=== PATIENT | male | born 1965 | race Caucasian/White ===

== ENCOUNTER 2019-09-08 13:31 | Emergency (ER) | payer OTHER ==
[2019-09-08] MEDS ORDERED: diazePAM INJ 5 MG/ML SYRINGE IM STA (14:02)
[2019-09-08] MEDS ORDERED: HYDROmorphone 1 MG/ML CARPUJECT IM STA (14:02)
--- NOTE | 2019-09-08 14:13 | ED Physician Documentation ---
PD HPI UPPER EXT INJURY - Stated complaint Stated Complaint: LT ARM INJ - Chief complaint Chief Complaint: Trauma Ext - History obtained from History obtained from: Patient, Friend - History of Present Illness Location: Left, Arm Type of injury: Fall (4 to 6 feet off of a ladder, landing on the left arm) Timing - onset: How many hours ago (1) Timing - duration: Hours (1) Timing - details: Abrupt onset Pain level max: 10 Pain level now: 10 Improved by: Rest, Immobilization Worsened by: Moving, Palpating Associated symptoms: Swelling. No: Weakness, Numbness, Tingling Contributing factors: No: Anticoagulated Similar symptoms before: Has not had sx before Recently seen: Not recently seen Review of Systems Constitutional: denies: Fever GI: denies: Vomiting, Diarrhea Skin: denies: Rash Musculoskeletal: denies: Neck pain, Back pain Neurologic: denies: Headache, Head injury, LOC PD PAST MEDICAL HISTORY - Past Medical History Cardiovascular: Hypertension, High cholesterol Endocrine/Autoimmune: Type 2 diabetes GI: GERD Musculoskeletal: Osteoarthritis - Past Surgical History Past Surgical History: Yes General: Appendectomy Cardiovascular: Lobectomy - Present Medications Home Medications: Ambulatory Orders Medication Instructions Recorded Confirmed Aspirin [Aspir 81] 81 mg PO DAILY 06/14/15 06/14/15 Omeprazole [Prilosec] 20 mg PO DAILY 06/14/15 06/14/15 Simvastatin [Zocor] 40 mg PO DAILY 06/14/15 06/14/15 Telmisartan [Micardis] 20 mg PO DAILY 06/14/15 06/14/15 metFORMIN [Glucophage] 500 mg PO ONCE 06/14/15 06/14/15 Cyclobenzaprine [Flexeril] 10 mg PO TID PRN #20 tablet 06/15/15 oxyCODONE/ACET 5/325 [Percocet 5 1 - 2 each PO Q6H PRN #14 tablet 06/15/15 mg/325 mg] Cyclobenzaprine [Flexeril] 10 mg PO TID PRN #20 tablet 09/08/19 Oxycodone HCl/Acetaminophen 1 - 2 each PO Q6H PRN #20 tablet 09/08/19 [Percocet 5-325 mg Tablet] - Allergies Allergies/Adverse Reactions: Allergies Allergy/AdvReac Type Severity Reaction Status Date / Time atorvastatin calcium * Allergy Hives Verified 09/08/19 13:39 [From Lipitor] Penicillins Allergy Hives Verified 09/08/19 13:39 - Social History Does the pt smoke?: No Smoking Status: Never smoker - Immunizations Immunizations are current?: Yes PD ED PE NORMAL - Vitals Vital signs reviewed: Yes - General General: Alert and oriented X 3, No acute distress - HEENT HEENT: Atraumatic, PERRL, Moist mucous membranes - Neck Neck: Supple, no meningeal sign, No bony TTP - Cardiac Cardiac: RRR - Respiratory Respiratory: No respiratory distress, Clear bilaterally - Abdomen Abdomen: Soft, Non tender, Non distended - Back Back: No spinal TTP - Derm Derm: Warm and dry - Extremities Extremities: Other (Tender to palpation over the left midshaft humerus. Deformity noted. Neurovascular intact.) - Neuro Neuro: Alert and oriented X 3, No motor deficit, No sensory deficit Results - Vitals Vitals: Vital Signs - 24 hr 09/08/19 09/08/19 13:39 15:45 Temperature 36.5 C Heart Rate 79 80 Respiratory 14 14 Rate Blood Pressure 115/75 111/75 O2 Saturation 98 98 Oxygen O2 Source Room air - Rads (name of study) Left humerus x-ray Radiology: Prelim report reviewed, EMP read contemporaneously, See rad report (midshaft humerus fracture) PD MEDICAL DECISION MAKING - ED course Complexity details: reviewed results, re-evaluated patient, considered differential, d/w patient, d/w family ED course: Patient placed in a Lanza brace. Also given a sling. Pain well controlled. Neurovascular intact. No evidence of compartment syndrome. Patient is going to return home and follow-up with orthopedics. Patient counseled regarding signs and symptoms for which I believe and urgent re-evaluation would be necessary. Patient with good understanding of and agreement to plan and is comfortable going home at this time This document was made in part using voice recognition software. While efforts are made to proofread this document, sound alike and grammatical errors may occur. Departure - Departure Disposition: 01 Home, Self Care Clinical Impression: Humerus fracture Qualifiers: Encounter type: initial encounter Humerus Location: shaft Fracture type: closed Fracture morphology: comminuted Fracture alignment: displaced Laterality: left Qualified Code(s): S42.352A - Displaced comminuted fracture of shaft of humerus, left arm, initial encounter for closed fracture Condition: Good Instructions: ED Fx Upper Ext Follow-Up: your,doctor in 1 week [Other] Prescriptions: Cyclobenzaprine [Flexeril] 10 mg PO TID PRN #20 tablet PRN Reason: Spasms Oxycodone HCl/Acetaminophen [Percocet 5-325 mg Tablet] 1 - 2 each PO Q6H PRN #20 tablet PRN Reason: pain Comments: You should be reevaluated by orthopedics within 1 week. Return if you worsen. Specially for numbness or tingling in the hand. Elevate the arm whenever possible. You have a midshaft humerus fracture that needs to be followed closely with orthopedics. Do not drink alcohol or drive while on narcotic pain medicine. Note that many narcotic pain relievers also contain tylenol/acetaminophen. Please ensure that your total dose of acetaminophen from all sources does not exceed 3 grams (3000mg) per day. You may constipated on this medication, take a stool softener such as "Colace" twice a day while you are on it. Also recommend a trne-ebn-brwykmx laxative such as senna or MiraLAX any day that you do not have a bowel movement. If you received narcotic pain medication in the emergency department, do not drive or operate machinery for the next 24 hours. Discharge Date/Time: 09/08/19 15:45
--- NOTE | 2019-09-08 15:17 | XRAY Report ---
Reason: fall, humerus pain Procedure Date: 09/08/2019 Accession Number: [id number] / [id number] Procedure: XR - Humerus LT CPT Code: Final Report FULL RESULT: EXAM: LEFT HUMERUS RADIOGRAPHY EXAM DATE: 09/08/2019 03:04 PM. CLINICAL HISTORY: Fall, humerus pain. COMPARISON: None. TECHNIQUE: 2 views. FINDINGS: Bones: Mildly comminuted, half shaft width displaced mid humeral shaft fracture seen with overall lateral angulation of the fracture apex. Joints: Normal. No effusions or subluxations in the visualized shoulder or elbow joints. Soft Tissues: Soft tissue swelling seen in the arm. IMPRESSION: 1. Mildly comminuted halfshaft or displaced mid humeral fracture with surrounding soft tissue swelling. [facility]
[2019-09-08 15:46] VITALS: BP 111/75
== END 2019-09-08 15:45 | disposition home or self-care (01) ==
LOC: ED 13:31
DX: S42.352A Displaced comminuted fracture of shaft of humerus, left arm, initial encounter for closed fracture (principal); W11.XXXA Fall on and from ladder, initial encounter; I10 Essential (primary) hypertension; E11.9 Type 2 diabetes mellitus without complications; Z79.84 Long term (current) use of oral hypoglycemic drugs
CPT/HCPCS: 73060; 96372; 99283; 99284; J1170